=== PATIENT | male | born 1950 | race Caucasian/White ===

== ENCOUNTER 2020-09-10 11:04 | Observation (INO) | payer MEDICARE ==
--- NOTE | 2020-09-10 12:14 | ED ---
General Adult HPI - General Chief complaint: Weakness Stated complaint: weakness Time Seen by Provider: 09/10/20 11:05 Source: patient, family, EMS, RN notes reviewed, old records reviewed Mode of arrival: EMS - History of Present Illness Initial comments: This is a 70-year-old male presents emergency Department with dementia and is unable to give any history daughter is there states he is currently at his baseline. According to the facility where he lives he came out of his room and said he was not feeling good and appeared weak so they called EMS. The only past history on him that we have is that he had a stent placed in his heart about 20 years ago. Patient's EKG does show atrial fibrillation but we have no history can confirm or deny any fevers had atrial flutter in the past. According to the daughter there is been no history of any fever vomiting or diarrhea. Patient states he has no areas of pain. No further history is available - Related Data Home Medications Medication Instructions Recorded Confirmed Ergocalciferol (Vitamin D2) 1,250 mcg PO WE 09/10/20 09/10/20 [Vitamin D2 (50,000 Iu)] Escitalopram [Lexapro] 10 mg PO DAILY 09/10/20 09/10/20 Memantine [Namenda] 10 mg PO BID 09/10/20 09/10/20 Omeprazole [PriLOSEC] 20 mg PO DAILY 09/10/20 09/10/20 Allergies Allergy/AdvReac Type Severity Reaction Status Date / Time No Known Allergies Allergy Verified 09/10/20 12:47 Review of Systems ROS Statement: Those systems with pertinent positive or pertinent negative responses have been documented in the HPI. ROS Other: All systems not noted in ROS Statement are negative. 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 History of Any Multi-Drug Resistant Organisms: None Reported Past Surgical History: Orthopedic Surgery Past Psychological History: No Psychological Hx Reported Smoking Status: Former smoker Past Alcohol Use History: None Reported Past Drug Use History: None Reported General Exam - General Exam Comments Initial Comments: GENERAL: Patient is well-developed and well-nourished. Patient is nontoxic and well- hydrated and is in no acute distress. ENT: Neck is soft and supple. No significant lymphadenopathy is noted. Oropharynx is clear. Moist mucous membranes. Neck has full range of motion without eliciting any pain. EYES: The sclera were anicteric and conjunctiva were pink and moist. Extraocular movements were intact and pupils were equal round and reactive to light. Eyelids were unremarkable. PULMONARY: Unlabored respirations. Good breath sounds bilaterally. No audible rales rhonchi or wheezing was noted. CARDIOVASCULAR: Patient has no irregular heartbeat ABDOMEN: Soft and nontender with normal bowel sounds. SKIN: Skin is clear with no lesions or rashes and otherwise unremarkable. NEUROLOGIC: Patient is alert and oriented 1 which according to his daughters his baseline. Cranial nerves II through XII are grossly intact. Motor and sensory are also intact. Normal speech, volume and content. Symmetrical smile. MUSCULOSKELETAL: Normal extremities with adequate strength and full range of motion. LYMPHATICS: No significant lymphadenopathy is noted PSYCHIATRIC: Normal psychiatric evaluation. Course Vital Signs 09/10/20 09/10/20 11:07 14:08 Temperature 98.8 F Pulse Rate 90 99 Respiratory 18 18 Rate Blood Pressure 139/97 136/72 O2 Sat by Pulse 98 98 Oximetry Medical Decision Making - Medical Decision Making EKG shows atrial fibrillation with rapid ventricular response at 102 bpm QRS is 110 QT interval 392 QTC is 510. Patient's EKG shows T-wave inversions in leads V3 through V5. There is no old EKG to compare to for the atrial fibrillation or the T-wave abnormalities. Daughter states that the patient has not had a history of atrial fibrillation that she knows of. I spoke with Dr. Erazo he agreed to admit the patient admitted the patient wrote admitting orders. I started the patient on heparin and continue the heparin on the floor. - Lab Data Result diagrams: 09/10/20 12:03 09/10/20 12:03 Lab Results 09/10/20 09/10/20 09/10/20 Range/Units 12:03 12:03 12:03 WBC 6.7 (3.8-10.6) k/uL RBC 5.09 (4.30-5.90) m/uL Hgb 16.6 (13.0-17.5) gm/dL Hct 47.1 (39.0-53.0) % MCV 92.5 (80.0-100.0) fL MCH 32.7 (25.0-35.0) pg MCHC 35.4 (31.0-37.0) g/dL RDW 12.3 (11.5-15.5) % Plt Count 192 (150-450) k/uL MPV 6.8 Neutrophils % 79 % Lymphocytes % 13 % Monocytes % 6 % Eosinophils % 1 % Basophils % 1 % Neutrophils # 5.3 (1.3-7.7) k/uL Lymphocytes # 0.9 L (1.0-4.8) k/uL Monocytes # 0.4 (0-1.0) k/uL Eosinophils # 0.1 (0-0.7) k/uL Basophils # 0.1 (0-0.2) k/uL Sodium 138 (137-145) mmol/L Potassium 3.7 (3.5-5.1) mmol/L Chloride 106 (98-107) mmol/L Carbon Dioxide 25 (22-30) mmol/L Anion Gap 7 mmol/L BUN 19 (9-20) mg/dL Creatinine 0.75 (0.66-1.25) mg/dL Est GFR (CKD-EPI)AfAm >90 (>60 ml/min/1.73 sqM) Est GFR (CKD-EPI)NonAf >90 (>60 ml/min/1.73 sqM) Glucose 141 H (74-99) mg/dL Calcium 9.2 (8.4-10.2) mg/dL Magnesium 2.2 (1.6-2.3) mg/dL Total Bilirubin 1.2 (0.2-1.3) mg/dL AST 20 (17-59) U/L ALT 17 (4-49) U/L Alkaline Phosphatase 91 (38-126) U/L Troponin I <0.012 (0.000-0.034) ng/mL Total Protein 6.3 (6.3-8.2) g/dL Albumin 3.6 (3.5-5.0) g/dL Urine Color Urine Appearance (Clear) Urine pH (5.0-8.0) Ur Specific [place] (1.001-1.035) Urine Protein (Negative) Urine Glucose (UA) (Negative) Urine Ketones (Negative) Urine Blood (Negative) Urine Nitrite (Negative) Urine Bilirubin (Negative) Urine Urobilinogen (<2.0) mg/dL Ur Leukocyte Esterase (Negative) 09/10/20 Range/Units 12:35 WBC (3.8-10.6) k/uL RBC (4.30-5.90) m/uL Hgb (13.0-17.5) gm/dL Hct (39.0-53.0) % MCV (80.0-100.0) fL MCH (25.0-35.0) pg MCHC (31.0-37.0) g/dL RDW (11.5-15.5) % Plt Count (150-450) k/uL MPV Neutrophils % % Lymphocytes % % Monocytes % % Eosinophils % % Basophils % % Neutrophils # (1.3-7.7) k/uL Lymphocytes # (1.0-4.8) k/uL Monocytes # (0-1.0) k/uL Eosinophils # (0-0.7) k/uL Basophils # (0-0.2) k/uL Sodium (137-145) mmol/L Potassium (3.5-5.1) mmol/L Chloride (98-107) mmol/L Carbon Dioxide (22-30) mmol/L Anion Gap mmol/L BUN (9-20) mg/dL Creatinine (0.66-1.25) mg/dL Est GFR (CKD-EPI)AfAm (>60 ml/min/1.73 sqM) Est GFR (CKD-EPI)NonAf (>60 ml/min/1.73 sqM) Glucose (74-99) mg/dL Calcium (8.4-10.2) mg/dL Magnesium (1.6-2.3) mg/dL Total Bilirubin (0.2-1.3) mg/dL AST (17-59) U/L ALT (4-49) U/L Alkaline Phosphatase (38-126) U/L Troponin I (0.000-0.034) ng/mL Total Protein (6.3-8.2) g/dL Albumin (3.5-5.0) g/dL Urine Color Yellow Urine Appearance Clear (Clear) Urine pH 5.5 (5.0-8.0) Ur Specific [place] 1.022 (1.001-1.035) Urine Protein Trace H (Negative) Urine Glucose (UA) Negative (Negative) Urine Ketones 2+ H (Negative) Urine Blood Negative (Negative) Urine Nitrite Negative (Negative) Urine Bilirubin Negative (Negative) Urine Urobilinogen <2.0 (<2.0) mg/dL Ur Leukocyte Esterase Negative (Negative) Critical Care Time Critical Care Time: Yes Total Critical Care Time: 35 Disposition Clinical Impression: New onset a-fib, Generalized weakness Disposition: ADMITTED IP TO THIS HOSP Referrals: Drew Madrid MD [Primary Care Provider] - 1-2 days Time of Disposition: 14:36
[2020-09-10 12:21] LABS: Basophils # (A) 0.1 k/uL (0-0.2); Basophils % (A) 1 %; Eosinophils # (A) 0.1 k/uL (0-0.7); Eosinophils % (A) 1 %; HCT 47.1 % (39.0-53.0); HGB 16.6 gm/dL (13.0-17.5); Lymphocytes # (A) 0.9 k/uL (1.0-4.8); Lymphocytes % (A) 13 %; MCH 32.7 pg (25.0-35.0); MCHC 35.4 g/dL (31.0-37.0); MCV 92.5 fL (80.0-100.0); Mean Platelet Volume 6.8; Monocytes # (A) 0.4 k/uL (0-1.0); Monocytes % (A) 6 %; Neutrophils # (A) 5.3 k/uL (1.3-7.7); Neutrophils % (A) 79 %; Platelet Count 192 k/uL (150-450); RBC 5.09 m/uL (4.30-5.90); RDW 12.3 % (11.5-15.5); WBC 6.7 k/uL (3.8-10.6)
--- NOTE | 2020-09-10 12:31 | XR ---
EXAMINATION TYPE: XR chest 2V DATE OF EXAM: 09/10/2020 COMPARISON: NONE HISTORY: Dyspnea and weakness. TECHNIQUE: Frontal and lateral views of the chest are obtained. FINDINGS: There is chronic parenchymal change without suspicious focal air space opacity, pleural ef fusion, or pneumothorax seen. The cardiac silhouette size is within normal limits. Multilevel spurri ng in the spine. IMPRESSION: Chronic changes without acute pulmonary process.
[2020-09-10 12:33] LABS: ALT 17 U/L (4-49); AST 20 U/L (17-59); African American GFR (CKD) >90 (>60 ml/min/1.73 sqM); Albumin 3.6 g/dL (3.5-5.0); Alkaline Phosphatase 91 U/L (38-126); Anion Gap 7 mmol/L; Blood Urea Nitrogen 19 mg/dL (9-20); Calcium 9.2 mg/dL (8.4-10.2); Carbon Dioxide 25 mmol/L (22-30); Chloride 106 mmol/L (98-107); Glucose 141 mg/dL (74-99); Magnesium 2.2 mg/dL (1.6-2.3); Non-African American GFR(CKD) >90 (>60 ml/min/1.73 sqM); Potassium 3.7 mmol/L (3.5-5.1); Sodium 138 mmol/L (137-145); Total Bilirubin 1.2 mg/dL (0.2-1.3); Total Protein 6.3 g/dL (6.3-8.2)
[2020-09-10 12:49] LABS: Appearance,Urine Clear (Clear); Bilirubin,Urine Negative (Negative); Blood,Urine Negative (Negative); Color,Urine Yellow; Glucose,Urine (UA) Negative (Negative); Ketones,Urine 2+ (Negative); Leukocyte Esterase,Urine Negative (Negative); Nitrite,Urine Negative (Negative); PH, Urine 5.5 (5.0-8.0); Protein,Urine Trace (Negative); Specific Gravity,Urine 1.022 (1.001-1.035); Urobilinogen,Urine <2.0 mg/dL (<2.0)
[2020-09-10] MEDS ORDERED: HEPARIN SODIUM,PORCINE 5,000 UNIT/ML 1 ML VIAL IV ONE (14:36)
[2020-09-10] MEDS ORDERED: NITROGLYCERIN SL TABS 0.4 MG TAB SUBLINGUAL PRN (14:37)
[2020-09-10] MEDS ORDERED: HEPARIN SOD,PORK IN 0.45% NACL 25,000 UNIT in 0.45% NACL 1 250ML.BAG IV SCH (14:45)
[2020-09-10] MEDS ORDERED: ENOXAPARIN 40 MG/0.4 ML SYRINGE SQ SCH (20:45)
[2020-09-10] MEDS: MEMANTINE 10 MG TAB PO SCH (22:37)
[2020-09-11 06:49] LABS: Cholesterol 194 mg/dL (<200); HDL Cholesterol 51 mg/dL (40-60); LDL Cholesterol,Calculated 127 mg/dL (0-99); Triglycerides 79 mg/dL (<150)
[2020-09-11 08:52] VITALS: RESP 16; TEMP 97.8
[2020-09-11] MEDS: MEMANTINE 10 MG TAB PO SCH (08:56)
[2020-09-11] MEDS ORDERED: ATORVASTATIN 40 MG TAB PO SCH (09:00)
[2020-09-11] MEDS ORDERED: ERGOCALCIFEROL 1,250 MCG (50,000 IU) CAPSULE PO SCH (09:00)
[2020-09-11] MEDS ORDERED: METOPROLOL TARTRATE 25 MG TAB PO SCH (09:00)
[2020-09-11] MEDS ORDERED: ASPIRIN 325 MG TAB PO SCH (09:00)
[2020-09-11] MEDS ORDERED: PANTOPRAZOLE 40 MG TABLET PO SCH (09:00)
[2020-09-11] MEDS ORDERED: ESCITALOPRAM 10 MG TAB PO SCH (09:00)
--- NOTE | 2020-09-11 11:01 | ECHOF ---
Referral Reason:new onset afib MEASUREMENTS -------- HEIGHT: 172.7 cm WEIGHT: 63.5 kg BP: IVSd: 0.9 cm (0.6 - 1.1) LVIDd: 3.4 cm (3.9 - 5.3) LVPWd: 1.1 cm (0.6 - 1.1) IVSs: 1.2 cm LVIDs: 3.2 cm LVPWs: 1.5 cm LAESV Index (A-L): 21.67 ml/m Ao Diam: 2.7 cm (2.0 - 3.7) AV Cusp: 1.8 cm (1.5 - 2.6) LA Diam: 2.0 cm (2.7 - 3.8) AR PHT: 1136 ms RAP: 5.00 mmHg RVSP: 16.42 mmHg FINDINGS -------- Atrial fibrillation. This was a technically adequate study. The left ventricular size is normal. Left ventricular wall thickness is normal. Overall left vent ricular systolic function is moderate-severely impaired with, an EF between 30 - 35 %. Left ventric ular fillimg pressure cannot be estimated due to Atrial fibrillation. The right ventricle is normal in size. The left atrial size is normal. Normal LA size by volume 22+/-6 ml/m2. The right atrial size is normal. Aortic valve is trileaflet and is mildly thickened. There is mild aortic regurgitation. The mitral valve is normal. The mitral valve leaflets are mildly thickened. Gycq-er-ohbtptbc mitr al regurgitation is present. The tricuspid valve appears structurally normal. Trace tricuspid regurgitation present. Right felice tricular systolic pressure is normal at < 35 mmHg. There is no pulmonic regurgitation present. The aortic root size is normal. Normal inferior vena cava with normal inspiratory collapse consistent with estimated right atrial pre ssure of 5 mmHg. There is no pericardial effusion. CONCLUSIONS -------- 1. The left ventricular size is normal. 2. Left ventricular wall thickness is normal. 3. Left ventricular fillimg pressure cannot be estimated due to Atrial fibrillation. 4. Aortic valve is trileaflet and is mildly thickened. 5. There is mild aortic regurgitation. 6. The mitral valve leaflets are mildly thickened. 7. Flqc-as-hyjgeqrk mitral regurgitation is present. 8. Trace tricuspid regurgitation present. 9. There is no pericardial effusion. OUTGOING INSPECTOR: Isamar Carmen RDCS
[2020-09-11 12:30] VITALS: BP 130/70; PULSE 88
--- NOTE | 2020-09-11 12:34 | P.CRDCN ---
History of Present Illness History of present illness: cp 1 stent 20yrs ago HISTORY OF PRESENTING ILLNESS This is a pleasant 70-year-old male past medical history significant for coronary artery disease status post PCI 20 years ago exact details unavailable and dementia. 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 We have been asked to see in consultation for atrial fibrillation. He presented to the hospital with his daughter secondary to increased weakness. He lives at a semi-independent apartment complex where he is checked on daily per nursing staff. He apparently told him he wasn't f eeling well. He does have a history of dementia. According to his daughter he is currently at his baseline. He is unable to verbalize any symptoms that he felt yesterday. He doesn't remember the reasoning for coming to the hospital. He is seen and examined resting comfortably laying flat in bed in no acute distress. He is pleasantly confused and mildly agitated wanting to go home. He is refusing quality assurance monitor chassis. EKG on arrival revealed atrial fibrillation with an incomplete right bundle branch block, T-wave inversions noted in the anterior lateral leads as well as nonspecific abnormalities inferiorly. There is no old EKG for comparison. Echocardiogram obtained reveals impaired LV systolic function with ejection fraction 30-35%, mild aortic regurgitation and mild to moderate mitral regurgitation. Laboratory data reviewed, CBC unremarkable, sodium 138, potassium 3.7, creatinine 0.75, magnesium 2.2, cardiac enzymes negative 3. Telemetry takes no daily cardiac medications. REVIEW OF SYSTEMS At the time of my exam: CONSTITUTIONAL: Denies fever or chills. CARDIOVASCULAR: Denies chest pain, shortness of breath, orthopnea, PND or palpitations. RESPIRATORY: Denies cough. GASTROINTESTINAL: Denies abdominal pain, diarrhea, constipation, nausea or vomiting. MUSCULOSKELETAL: Denies myalgias. NEUROLOGIC: Denies numbness, tingling, headacbe or weakness. ENDOCRINE: Denies fatigue, weight change, polydipsia or polyurina. GENITOURINARY: Denies burning, hematuria or urgency with micturation. HEMATOLOGIC: Denies history of anemia or bleeding. PHYSICAL EXAMINATION Blood pressure 141/86 heart rate 90 afebrile and maintaining oxygen saturation on room air. CONSTITUTIONAL: No apparent distress. HEENT: Head is normocephalic. Pupils are equal, round. Sclerae anicteric. Mucous membranes of the mouth are moist. No JVD. No carotid bruit. CHEST EXAMINATION: Lungs are clear to auscultation. No chest wall tenderness is noted on palpation or with deep breathing. HEART EXAMINATION: Irregular rate and rhythm. S1, S2 heard. Soft systolic ejection murmur at the base, no gallops or rub. ABDOMEN: Soft, nontender. Positive bowel sounds. EXTREMITIES: 2+ peripheral pulses, no lower extremity edema and no calf tenderness. NEUROLOGIC EXAMINATION: Patient is awake, alert to self and some history information but mostly confused. ASSESSMENT New onset paroxysmal atrial fibrillation Coronary artery disease s/p PCI 20 years ago, exact details unknown Hypertension Dyslipidemia Dementia Cardiomyopathy, unknown if ischemic or non-ischemic due to afib Systolic heart failure, unknown if acute or chronic. PLAN He continues to be in atrial fibrillation with controlled ventricular rates. We have initiated lopressor 25 mg BID for rate control. Given his history of coronary artery disease recommend atorvastatin 40 mg daily. No aspirin secondary to the need for blood thinners at this point. Spoke with his daughter regarding his risk for falling and she felt his risk was a minimal as he typically uses a motorized scooter around the home. She states he has been here only recently but has not shown any signs of unsteady gait or falls. He lives in a semi-independent apartment where he is checked and daily by nurse. Primary care team has started him on Xarelto, case management and striking the cost. Given cardiomyopathy found on echocardiogram we recommend initiation of l isinopril 5 mg daily along with beta blockers. Ongoing monitoring of heart rate and blood pressure. Further recommendations to follow based upon clinical course. Thank you kindly for this consultation. Nurse Practitioner note has been reviewed, I agree with a documented findings and plan of care. Patient was seen and examined. 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 History of Any Multi-Drug Resistant Organisms: None Reported Past Surgical History: Heart Catheterization With Stent, Orthopedic Surgery Date of Last Stent Placement:: unknown Past Psychological History: No Psychological Hx Reported Smoking Status: Former smoker Past Alcohol Use History: None Reported Past Drug Use History: None Reported Medications and Allergies Home Medications Medication Instructions Recorded Confirmed Type Ergocalciferol (Vitamin D2) 1,250 mcg PO WE 09/10/20 09/10/20 History [Vitamin D2 (50,000 Iu)] Escitalopram [Lexapro] 10 mg PO DAILY 09/10/20 09/10/20 History Memantine [Namenda] 10 mg PO BID 09/10/20 09/10/20 History Omeprazole [PriLOSEC] 20 mg PO DAILY 09/10/20 09/10/20 History Atorvastatin Calcium [Lipitor] 20 mg PO HS #30 tab 09/11/20 Rx Metoprolol Tartrate [Lopressor] 25 mg PO BID #60 tab 09/11/20 Rx Rivaroxaban [Xarelto] 20 mg PO AC-SUPPER #30 tab 09/11/20 Rx Allergies Allergy/AdvReac Type Severity Reaction Status Date / Time No Known Allergies Allergy Verified 09/10/20 12:47 Physical Exam Vitals: Vital Signs Temp Pulse Pulse Resp BP BP Pulse Ox 09/11/20 04:00 88 18 147/94 97 09/11/20 02:00 96 18 09/11/20 00:00 96 18 135/76 98 09/10/20 22:00 95 18 137/77 97 09/10/20 20:00 105 H 16 133/94 98 09/10/20 16:20 101 H 18 129/77 99 09/10/20 14:08 99 18 136/72 98 09/10/20 11:07 98.8 F 90 18 139/97 98 Intake and Output 09/10/20 09/11/20 09/11/20 22:59 06:59 14:59 Intake Total 59.055 Output Total 250 150 Balance -190.945 -150 Intake: Intake, IV Titration 59.055 Amount Heparin Sod,Pork in 0.45% 59.055 NaCl 25,000 unit In 0.45 % NaCl 1 250ml.bag @ 12 UNITS/KG/HR 7.62 mls/hr IV .Q24H [facility] Rx#: [id number] Output: Urine 250 150 Other: Voiding Method Urinal Urinal Weight 63.503 kg Results 09/10/20 12:03 09/10/20 12:03 Cardiac Enzymes 09/10/20 09/10/20 09/10/20 Range/Units 12:03 12:03 15:08 AST 20 (17-59) U/L Troponin I <0.012 <0.012 (0.000-0.034) ng/mL 09/10/20 Range/Units 18:44 AST (17-59) U/L Troponin I <0.012 (0.000-0.034) ng/mL Coagulation 09/10/20 09/11/20 Range/Units 21:15 05:24 APTT 82.0 H 52.4 H (22.0-30.0) sec Lipids 09/11/20 Range/Units 05:24 Triglycerides 79 (<150) mg/dL Cholesterol 194 (<200) mg/dL HDL Cholesterol 51 (40-60) mg/dL CBC 09/10/20 Range/Units 12:03 WBC 6.7 (3.8-10.6) k/uL RBC 5.09 (4.30-5.90) m/uL Hgb 16.6 (13.0-17.5) gm/dL Hct 47.1 (39.0-53.0) % Plt Count 192 (150-450) k/uL Comprehensive Metabolic Panel 09/10/20 Range/Units 12:03 Sodium 138 (137-145) mmol/L Potassium 3.7 (3.5-5.1) mmol/L Chloride 106 (98-107) mmol/L Carbon Dioxide 25 (22-30) mmol/L BUN 19 (9-20) mg/dL Creatinine 0.75 (0.66-1.25) mg/dL Glucose 141 H (74-99) mg/dL Calcium 9.2 (8.4-10.2) mg/dL AST 20 (17-59) U/L ALT 17 (4-49) U/L Alkaline Phosphatase 91 (38-126) U/L Total Protein 6.3 (6.3-8.2) g/dL Albumin 3.6 (3.5-5.0) g/dL Current Medications Generic Name Dose Route Start Last Admin Trade Name Freq PRN Reason Stop Dose Admin Aspirin 325 mg 09/11/20 09:00 Aspirin 325 Mg Tab PO DAILY [facility] Ergocalciferol 1,250 mcg 09/11/20 09:00 Ergocalciferol 1,250 Mcg (50,000 Iu) Capsule PO WE [facility] Escitalopram Oxalate 10 mg 09/11/20 09:00 Escitalopram 10 Mg Tab PO DAILY [facility] Heparin Sodium/Sodium Chloride 250 mls @ 7.62 mls/hr 09/10/20 14:45 09/10/20 22:43 25,000 unit/ Sodium Chloride IV 10 units/kg/hr .Q24H [facility] 6.35 mls/hr Titration Protocol 12 UNITS/KG/HR Memantine 10 mg 09/10/20 21:00 09/10/20 22:37 Memantine 10 Mg Tab PO 10 mg BID [facility] Administration Nitroglycerin 0.4 mg 09/10/20 14:37 Nitroglycerin Sl Tabs 0.4 Mg Tab SUBLINGUAL Q5M PRN Chest Pain Pantoprazole Sodium 40 mg 09/11/20 09:00 Pantoprazole 40 Mg Tablet PO DAILY [facility] Intake and Output 09/10/20 09/11/20 09/11/20 22:59 06:59 14:59 Intake Total 59.055 Output Total 250 150 Balance -190.945 -150 Intake: Intake, IV Titration 59.055 Amount Heparin Sod,Pork in 0.45% 59.055 NaCl 25,000 unit In 0.45 % NaCl 1 250ml.bag @ 12 UNITS/KG/HR 7.62 mls/hr IV .Q24H [facility] Rx#: [id number] Output: Urine 250 150 Other: Voiding Method Urinal Urinal Weight 63.503 kg 09/10/20 12:03 09/10/20 12:03
--- NOTE | 2020-09-11 19:11 | P.HPIM ---
History of Present Illness H&P Date: 09/11/20 Chief Complaint: Not feeling well History of presenting complaint: This is a 70-year-old patient was brought to the ER accompanied by his daughter. He lives at [facility]. He was sent in because he said he was not feeling good and felt a bit weak. So they called EMS. Has no history of coronary artery disease with a stent placed about 20 years ago. EKG in the ER did show atrial fibrillation. Patient has some discomfort in the right leg and does use a cane because of poorly in the right leg. Apparently patient was living with his in [place]. And his toldhim to leave. Patient was then sent to [facility] from that he was discharged in family 20th. Patient had been chronically on methadone which was taken off during his admission and psychiatry hospital. Since then for his chronic pain is been using Tylenol. Patient's daughter then brought him to [place]. And is currently at [facility]. Patient not a good historian does seem to drift off on giving history. He denies any respiratory symptoms. No fever no chills. No urinary symptoms. No change in bowel pattern. Because his atrial fibrillation seen by currently. Patient on aggressive other laying in bed calmly. Review of systems: GEN.: Tired EYES: None HEENT: None NECK: None RESPIRATORY: None CARDIOVASCULAR: None GASTROINTESTINAL: None GENITOURINARY: None MUSCULOSKELETAL: Chronic weakness of the right leg LYMPHATICS: None HEMATOLOGICAL: None PSYCHIATRY: None NEUROLOGICAL: Does use a cane Past medical history to include: Coronary artery disease with stent,, chronic pain in the past which patient took methadone not for last 2 months. 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 No alcohol. Currently living at [facility]. Family history: Reviewed, noncontributory to presentation Physical examination: VITAL SIGNS: 97.8, 90, 16, 141/86, 99% room air GENERAL: (BMI 21.3, laying in bed, comfortable . EYES: Pupils equal. Conjunctiva normal. HEENT: External appearance of nose and ears normal, oral cavity grossly normal. NECK: JVD not raised; masses not palpable. HEART: First and second heart sounds are normal; no edema. LUNGS: Respiratory rate normal; clear to auscultation. ABDOMEN: Soft, nontender, liver spleen not palpable, no masses palpable. PSYCH: [Patient is able to answer simple questions l. NEUROLOGICAL: Cranial nerves grossly intact; no facial asymmetry, power and sensation grossly intact. LYMPHATICS: No lymph nodes palpable in the axilla and neck INVESTIGATIONS, reviewed in the clinical context: WBC 6.7 hemoglobin 16.6 platelets 192 potassium 3.7 creatinine 0.75 Troponin I 3 negative UA ketones 2+ Coronary no evidence [PCR] not detected EKG tracing personally reviewed by me-atrial flutter fibrillation, with some ST segment changes Chest x-ray film personally reviewed by me-no obvious infiltrates 2-D echocardiogram EF 30-35%, mitral regurgitation Assessment and plan: -Persistent atrial flutter fibrillation. Currently rate is controlled. May be contribution take to his symptoms. Patient to be anticoagulated. Beta magnus -Chronic congestive heart failure from systolic dysfunction EF 30-35%. Possibly contribution to his weakness. 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 Started on beta magnus. As per the daughter she had denied any history for falls. He does use a cane. 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 History of Any Multi-Drug Resistant Organisms: None Reported Past Surgical History: Heart Catheterization With Stent, Orthopedic Surgery Date of Last Stent Placement:: unknown Past Psychological History: No Psychological Hx Reported Smoking Status: Former smoker Past Alcohol Use History: None Reported Past Drug Use History: None Reported Medications and Allergies Home Medications Medication Instructions Recorded Confirmed Type Ergocalciferol (Vitamin D2) 1,250 mcg PO WE 09/10/20 09/10/20 History [Vitamin D2 (50,000 Iu)] Escitalopram [Lexapro] 10 mg PO DAILY 09/10/20 09/10/20 History Memantine [Namenda] 10 mg PO BID 09/10/20 09/10/20 History Omeprazole [PriLOSEC] 20 mg PO DAILY 09/10/20 09/10/20 History Atorvastatin Calcium [Lipitor] 20 mg PO HS #30 tab 09/11/20 Rx Metoprolol Tartrate [Lopressor] 25 mg PO BID #60 tab 09/11/20 Rx Rivaroxaban [Xarelto] 20 mg PO AC-SUPPER #30 tab 09/11/20 Rx lisinopriL [Zestril] 5 mg PO DAILY #90 tab 09/11/20 Rx Allergies Allergy/AdvReac Type Severity Reaction Status Date / Time No Known Allergies Allergy Verified 09/10/20 12:47 Physical Exam Vitals: Vital Signs Temp Pulse Pulse Resp BP BP Pulse Ox 09/11/20 08:51 97.8 F 90 16 141/86 99 09/11/20 04:00 88 18 147/94 97 09/11/20 02:00 96 18 09/11/20 00:00 96 18 135/76 98 09/10/20 22:00 95 18 137/77 97 09/10/20 20:00 105 H 16 133/94 98 09/10/20 16:20 101 H 18 129/77 99 09/10/20 14:08 99 18 136/72 98 09/10/20 11:07 98.8 F 90 18 139/97 98 Intake and Output 09/10/20 09/11/20 09/11/20 22:59 06:59 14:59 Intake Total 59.055 Output Total 250 150 Balance -190.945 -150 Intake: Intake, IV Titration 59.055 Amount Heparin Sod,Pork in 0.45% 59.055 NaCl 25,000 unit In 0.45 % NaCl 1 250ml.bag @ 12 UNITS/KG/HR 7.62 mls/hr IV .Q24H [facility] Rx#: [id number] Output: Urine 250 150 Other: Voiding Method Urinal Urinal Weight 63.503 kg Results CBC & Chem 7: 09/10/20 12:03 09/10/20 12:03 Labs: Abnormal Lab Results - Last 24 Hours (Table) 09/10/20 09/10/20 09/10/20 Range/Units 12:03 12:03 12:35 Lymphocytes # 0.9 L (1.0-4.8) k/uL APTT (22.0-30.0) sec Glucose 141 H (74-99) mg/dL LDL Cholesterol, Calc (0-99) mg/dL Urine Protein Trace H (Negative) Urine Ketones 2+ H (Negative) 09/10/20 09/11/20 09/11/20 Range/Units 21:15 05:24 05:24 Lymphocytes # (1.0-4.8) k/uL APTT 82.0 H 52.4 H (22.0-30.0) sec Glucose (74-99) mg/dL LDL Cholesterol, Calc 127 H (0-99) mg/dL Urine Protein (Negative) Urine Ketones (Negative) Thrombosis Risk Factor Assmnt - Choose All That Apply Any of the Below Risk Factors Present?: Yes Each Factor Represents 1 point: Medical pt on bed rest Other Risk Factors: Yes Each Risk Factor Represents 2 Points: Age 61-74 years Other congenital or acquired thrombophilia - If yes, enter type in comment: No Thrombosis Risk Factor Assessment Total Risk Factor Score: 3 Thrombosis Risk Factor Assessment Level: Moderate Risk
--- NOTE | 2020-09-11 19:14 | P.DS ---
Providers Date of admission: 09/10/20 14:37 Expected date of discharge: 09/11/20 Attending physician: Shiva Erazo Consults: 09/10/20 14:37 Consult Physician Urgent Consulting Provider: [facility] Consult Reason/Comments: New-onset A. fib Do you want consulting provider notified?: Yes Primary care physician: [facility] Course: Chief Complaint: Not feeling well History of presenting complaint: This is a 70-year-old patient was brought to the ER accompanied by his daughter. He lives at [facility]. He was sent in because he said he was not feeling good and felt a bit weak. So they called EMS. Has no history of coronary artery disease with a stent placed about 20 years ago. EKG in the ER did show atrial fibrillation. Patient has some discomfort in the right leg and does use a cane because of poorly in the right leg. Apparently patient was living with his in [place]. And his toldhim to leave. Patient was then sent to [facility] from that he was discharged in family . Patient had been chronically on methadone which was taken off during his admission and psychiatry hospital. Since then for his chronic pain is been using Tylenol. Patient's daughter then brought him to [place]. And is currently at [facility]. Patient not a good historian does seem to drift off on giving history. He denies any respiratory symptoms. No fever no chills. No urinary symptoms. No change in bowel pattern. Because his atrial fibrillation seen by currently. Patient on aggressive other laying in bed calmly. Patient's 2-D echo showed EF of 30-35% patient was placed on xarelto. Beta magnus. Small does of lisinopril. I did today patient is doing well. Oral intake fair. No complaints. Patient being discharged home. He'll follow-up with cardiology in the office. Does use a cane. Patient to also follow up with [facility]. Consultation: Dr. Alberto Valadez from cardiology Past medical history to include: Coronary artery disease with stent,, chronic pain in the past which patient took methadone not for last 2 months. 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 No alcohol. Currently living at [facility]. Family history: Reviewed, noncontributory to presentation Physical examination: VITAL SIGNS: 97.8, 90, 16, 130/70, 96% room air GENERAL: (BMI 21.3, in bed, comfortable . EYES: Pupils equal. Conjunctiva normal. HEENT: External appearance of nose and ears normal, oral cavity grossly normal. NECK: JVD not raised; masses not palpable. HEART: First and second heart sounds are normal; no edema. LUNGS: Respiratory rate normal; clear to auscultation. ABDOMEN: Soft, nontender, liver spleen not palpable, no masses palpable. PSYCH: [Patient is able to answer simple questions l. INVESTIGATIONS, reviewed in the clinical context: WBC 6.7 hemoglobin 16.6 platelets 192 potassium 3.7 creatinine 0.75 Troponin I 3 negative UA ketones 2+ Coronary no evidence [PCR] not detected EKG tracing personally reviewed by me-atrial flutter fibrillation, with some ST segment changes Chest x-ray film personally reviewed by me-no obvious infiltrates 2-D echocardiogram EF 30-35%, mitral regurgitation Assessment and plan: -Persistent atrial flutter fibrillation. Currently rate is controlled. May be contribution take to his symptoms. Patient to be anticoagulated. Beta magnus -Chronic congestive heart failure from systolic dysfunction EF 30-35%. Possibly contribution to his weakness. 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 Does use a cane -Depression not otherwise specified, continue Lexapro -Mild cognitive impairment Disposition: Assisted-living/[facility] Plan - Discharge Summary Discharge Rx Participant: Yes New Discharge Prescriptions: New Rivaroxaban [Xarelto] 20 mg PO AC-SUPPER #30 tab lisinopriL [Zestril] 5 mg PO DAILY #90 tab Atorvastatin Calcium [Lipitor] 20 mg PO HS #30 tab Metoprolol Tartrate [Lopressor] 25 mg PO BID #60 tab Continue Omeprazole [PriLOSEC] 20 mg PO DAILY Memantine [Namenda] 10 mg PO BID Ergocalciferol (Vitamin D2) [Vitamin D2 (50,000 Iu)] 1,250 mcg PO WE Escitalopram [Lexapro] 10 mg PO DAILY Discharge Medication List Ergocalciferol (Vitamin D2) [Vitamin D2 (50,000 Iu)] 1,250 mcg PO WE 09/10/20 [History] Escitalopram [Lexapro] 10 mg PO DAILY 09/10/20 [History] Memantine [Namenda] 10 mg PO BID 09/10/20 [History] Omeprazole [PriLOSEC] 20 mg PO DAILY 09/10/20 [History] Atorvastatin Calcium [Lipitor] 20 mg PO HS #30 tab 09/11/20 [Rx] Metoprolol Tartrate [Lopressor] 25 mg PO BID #60 tab 09/11/20 [Rx] Rivaroxaban [Xarelto] 20 mg PO AC-SUPPER #30 tab 09/11/20 [Rx] lisinopriL [Zestril] 5 mg PO DAILY #90 tab 09/11/20 [Rx] Follow up Appointment(s)/Referral(s): dr ELIZABETH [Other] - 1 Week Alberto Valadez MD [STAFF PHYSICIAN] - 1 Week (Office will call you with appointment date & time) [facility], [NON-STAFF] - 1 Week Drew Madrid MD [Primary Care Provider] - 1-2 days Patient Instructions/Handouts: A-fib (Atrial Fibrillation) (DC) Discharge Disposition: HOME SELF-CARE
[2020-09-12] MEDS ORDERED: lisinopriL 5 MG TAB PO SCH (09:00)
== END 2020-09-11 14:33 | disposition home or self-care (01) ==
LOC: EC 11:04 → 3SCARD 14:37
PROVIDERS: ADMIT Hospitalist; ATTEND Hospitalist
DX: I48.19 Other persistent atrial fibrillation (principal); F03.90 Unspecified dementia, unspecified severity, without behavioral disturbance, psychotic disturbance, mood disturbance, and anxiety; I11.0 Hypertensive heart disease with heart failure; I50.22 Chronic systolic (congestive) heart failure; I48.92 Unspecified atrial flutter; I25.10 Atherosclerotic heart disease of native coronary artery without angina pectoris; E78.5 Hyperlipidemia, unspecified; I08.0 Rheumatic disorders of both mitral and aortic valves; I45.10 Unspecified right bundle-branch block; G89.29 Other chronic pain; F32.9 Major depressive disorder, single episode, unspecified; Z79.01 Long term (current) use of anticoagulants; Z79.899 Other long term (current) drug therapy; Z98.61 Coronary angioplasty status; Z86.12 Personal history of poliomyelitis; Z87.891 Personal history of nicotine dependence; Z98.890 Other specified postprocedural states
CPT/HCPCS: 96366 ×3; 93005 ×2; 96376; 96365; 99291; 36415; 93306; 80061; 80053; 83735; 84484; 85025; 85730 ×2; 81003; 87635; 71046; G0378 ×2; J1644 ×2

== ENCOUNTER 2020-10-02 18:38 | Emergency (ER) | payer MEDICARE ==
[2020-10-02 18:51] VITALS: BP 118/75; PULSE 95; RESP 18
[2020-10-02] MEDS ORDERED: KETOROLAC 15 MG/ML 1 ML VIAL IM STA (19:26)
[2020-10-02] MEDS ORDERED: HYDROmorphone 0.5 MG/0.5 ML SYRINGE IM STA (19:27)
--- NOTE | 2020-10-02 20:11 | ED ---
General Adult HPI - General Chief complaint: Weakness Stated complaint: Body aches, Time Seen by Provider: 10/02/20 18:50 Source: patient, EMS, RN notes reviewed, old records reviewed Mode of arrival: EMS Limitations: no limitations - History of Present Illness Initial comments: This is a 70-year-old male presents emergency department stating that he has chronic pain in his back and it goes down both his legs sometimes. Patient denies any recent injury. Patient denies any weakness patient denies any numbness. Patient states he had polio as a child. Patient states she was on methadone up until 2 months ago and his doctor took him off. Patient states since then he has had multiple episodes of pain in his back which radiates down his legs. Patient denies any recent fever chills or cough. Patient denies any abdominal pain. Patient has nausea vomiting diarrhea. - Related Data Home Medications Medication Instructions Recorded Confirmed Ergocalciferol (Vitamin D2) 1,250 mcg PO WE 09/10/20 09/10/20 [Vitamin D2 (50,000 Iu)] Escitalopram [Lexapro] 10 mg PO DAILY 09/10/20 09/10/20 Memantine [Namenda] 10 mg PO BID 09/10/20 09/10/20 Omeprazole [PriLOSEC] 20 mg PO DAILY 09/10/20 09/10/20 Previous Rx's Medication Instructions Recorded Atorvastatin Calcium [Lipitor] 20 mg PO HS #30 tab 09/11/20 Metoprolol Tartrate [Lopressor] 25 mg PO BID #60 tab 09/11/20 Rivaroxaban [Xarelto] 20 mg PO AC-SUPPER #30 tab 09/11/20 lisinopriL [Zestril] 5 mg PO DAILY #90 tab 09/11/20 Allergies Allergy/AdvReac Type Severity Reaction Status Date / Time No Known Allergies Allergy Verified 09/10/20 12:47 Review of Systems ROS Statement: Those systems with pertinent positive or pertinent negative responses have been documented in the HPI. ROS Other: All systems not noted in ROS Statement are negative. 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 History of Any Multi-Drug Resistant Organisms: None Reported Past Surgical History: Heart Catheterization With Stent, Orthopedic Surgery Date of Last Stent Placement:: unknown Past Psychological History: No Psychological Hx Reported Smoking Status: Former smoker Past Alcohol Use History: None Reported Past Drug Use History: None Reported General Exam - General Exam Comments Initial Comments: GENERAL: Patient is well-developed and well-nourished. Patient is nontoxic and well- hydrated and is in mild distress. ENT: Neck is soft and supple. No significant lymphadenopathy is noted. Oropharynx is clear. Moist mucous membranes. Neck has full range of motion without eliciting any pain. EYES: The sclera were anicteric and conjunctiva were pink and moist. Extraocular movements were intact and pupils were equal round and reactive to light. Eyelids were unremarkable. PULMONARY: Unlabored respirations. Good breath sounds bilaterally. No audible rales rhonchi or wheezing was noted. CARDIOVASCULAR: There is a regular rate and rhythm without any murmurs gallops or rubs. ABDOMEN: Soft and nontender with normal bowel sounds. SKIN: Skin is clear with no lesions or rashes and otherwise unremarkable. NEUROLOGIC: Patient is alert and oriented x3. Cranial nerves II through XII are grossly intact. Motor and sensory are also intact. Normal speech, volume and content. Symmetrical smile. MUSCULOSKELETAL: Normal extremities with adequate strength and full range of motion. Patient has no tenderness of the hips knees or ankles. Patient has no back pain on palpation or with movement patient was able to get out of bed and touch his toes LYMPHATICS: No significant lymphadenopathy is noted PSYCHIATRIC: Normal psychiatric evaluation. Limitations: no limitations Course Vital Signs 10/02/20 18:41 Pulse Rate 95 Respiratory 18 Rate Blood Pressure 118/75 O2 Sat by Pulse 97 Oximetry Medical Decision Making - Medical Decision Making Patient got his pain medications and immediately requested to be discharged in fact took out his own IV. Disposition Clinical Impression: Chronic back pain Disposition: HOME SELF-CARE Condition: Good Instructions (If sedation given, give patient instructions): Chronic Back Pain (DC) Is patient prescribed a controlled substance at d/c from ED?: No Referrals: Drew Madrid MD [Primary Care Provider] - 1-2 days Time of Disposition: 20:11
== END 2020-10-02 20:21 | disposition home or self-care (01) ==
LOC: EC 18:38
DX: G89.29 Other chronic pain (principal); M54.9 Dorsalgia, unspecified; I48.91 Unspecified atrial fibrillation; Z87.891 Personal history of nicotine dependence
CPT/HCPCS: 99284; 96372; J1885; J1170